=== PATIENT | female | born 1990 | race Caucasian/White ===

== ENCOUNTER 2023-10-04 11:01 | Outpatient (CLI) | payer MEDICAID | END 2023-10-04 23:59 | disposition home or self-care (01) | LOC: RAD 11:01 | PROVIDERS: ATTEND Nurse Practitioner Obstetrics & Gynecology | DX: O09.522 Supervision of elderly multigravida, second trimester (principal); Z3A.23 23 weeks gestation of pregnancy | CPT/HCPCS: 76805; 76811 ==

== ENCOUNTER 2023-10-08 09:21 | Emergency (ER) | payer MEDICAID ==
[~2023-10-08] VITALS: Ht 162.6 cm; Wt 70.0 kg
[2023-10-08 09:29] VITALS: BP 143/75; PULSE 87; RESP 18; TEMP 98; O2SAT 98
[2023-10-08] MEDS ORDERED: AMOX-580 PO (09:34)
== END 2023-10-08 09:38 | disposition home or self-care (01) ==
LOC: ER 09:21
DX: O26.892 Other specified pregnancy related conditions, second trimester (principal); K04.7 Periapical abscess without sinus; Z3A.23 23 weeks gestation of pregnancy
CPT/HCPCS: 99283